=== PATIENT | male | born 1980 | race Caucasian/White ===

== ENCOUNTER 2016-05-02 22:32 | Emergency (ER) | payer OTHER ==
[2016-05-02 22:37] VITALS: RESP 16
--- NOTE | 2016-05-02 23:40 | CPEKG ---
Heart Rate: 54 RR Interval: 1111 P-R Interval: 176 QRSD Interval: 86 QT Interval: 444 QTC Interval: 421 P Cashion: 71 QRS Cashion: 65 T Wave Cashion: 59 EKG Severity - NORMAL ECG - EKG Impression: SINUS RHYTHM Electronically Signed By: Cb Henson 03-May-2016 07:47:34
--- NOTE | 2016-05-03 00:29 | EDPHY ---
HPI/HX/ROS/PE/MDM Narrative: Chief complaint: Chest pain HPI: 35-year-old male who is presenting with 10 days of intermittent left arm tingling and some chest pain in his left upper chest. He was seen by his PCP last Saturday and had an ECG which was told was normal. Patient stating since that time he has been having some mild intermittent lightheadedness. Is occasionally having some pain in his left upper chest and left shoulder. Currently he is pain free. Last pain he had was several hours ago. It is at worst mild to a 1 to 2/10. There are no aggravating or alleviating factors. Pain since he last seconds to minutes. No fevers or chills. No cough. No nausea or vomiting. Does not have a history of the same. Does not have any risk factors for coronary artery disease. He does not smoke. No family history of coronary disease. ROS: 10 point Review of Systems is negative except as noted in the HPI. Social history: No smoking, occasional alcohol, no drugs, Family history: Mother with diabetes, otherwise no family history of coronary artery disease Physical exam: Gen: Awake, Alert, No Distress HEENT: Nose: no rhinorrhea Eyes: PERRLA, EOMI Mouth: Moist mucosa Neck: Supple, no JVD Chest: nontender, lungs clear to auscultation Heart: S1, S2 normal, no murmur Abd: Soft, non-tender, no guarding Back: no CVA tenderness, no midline tenderness Ext: no edema, non-tender Skin: no rash Neuro: CN II-XII intact, Sensation grossly intact, Strength 5/5 in bilateral upper and lower extremities ED Course: ECG: Normal Troponin: Normal Medical decision makin-year-old well-appearing male presenting with some mild intermittent left-sided chest pains and vague comes into his left arm. He has a normal ECG. Troponin is normal. He has no risk factors for coronary disease. He is currently without complaint. Plan will be to discharge with referral to Cardiology for outpatient stress testing and further risk stratification. Patient will return immediately to the emergency department for worsening pain, shortness of breath, fevers, chills, or any other concerns. - Data Points Laboratory Results: 05/03/16 00:35 Troponin I < 0.012 ng/mL (0-0.034) General Time Seen by Provider: 05/03/16 00:02 Initial Vital Signs: Initial Vital Signs Temperature (C) 36.3 C 05/02/16 22:34 Heart Rate 67 05/02/16 22:34 Respiratory Rate 16 05/02/16 22:34 Blood Pressure 134/87 H 05/02/16 22:34 O2 Sat (%) 94 05/02/16 22:34 O2 Delivery Mode Room Air Allergies/Adverse Reactions: Penicillins Allergy (Verified 05/02/16 22:34) shellfish derived Allergy (Verified 05/02/16 22:34) Home Medications: Medication Instructions Recorded NK [No Known Home Meds] 05/02/16 Departure - Departure Disposition: Home, Routine, Self-Care Clinical Impression: Chest pain Condition: Good Instructions: Chest Pain (ED) Additional Instructions: Follow up with Cardiology for a stress test in the next 48 hours. Follow up with her primary care physician for any concerns. Return to the emergency depart for increasing chest pain, shortness of breath, fevers, chills, or any other concerns. [place]errals: [place],. [Primary Care Provider] - As per Instructions Tim Perez MD [Medical Doctor] - As per Instructions
[2016-05-03 01:31] VITALS: BP 131/75; PULSE 64; TEMP 97.7; O2SAT 97
== END 2016-05-03 01:30 | disposition home or self-care (01) ==
DX: R07.9 Chest pain, unspecified (principal)